=== PATIENT | female | born 1950 | race Two or more races ===

== ENCOUNTER 2020-10-13 09:58 | Emergency (ER) | payer OTHER ==
[~2020-10-13] VITALS: Ht 160 cm; Wt 66.7 kg
[2020-10-13] MEDS ORDERED: KETO10TA2 PO (11:48)
[2020-10-13] MEDS ORDERED: MUPIROCIN22 GM TOP (11:48)
[2020-10-13] MEDS ORDERED: ZYRTEC10 M3 PO (11:48)
[2020-10-13] MEDS ORDERED: ACYCLOVIR800 MG PO (11:48)
== END 2020-10-13 13:01 | disposition home or self-care (01) ==
LOC: ER 09:58
DX: B02.9 Zoster without complications (principal)

== ENCOUNTER 2021-01-07 06:00 | Day surgery (SDC) | payer OTHER ==
[~2021-01-07 06:00] MED LIST: ACYCLOVIR800 MG PO; KETO10TA2 PO; MUPIROCIN22 GM TOP; ZYRTEC10 M3 PO
== END 2021-01-07 17:25 | disposition home or self-care (01) ==
LOC: AMB-ENDOS 06:00
PROVIDERS: ATTEND Surgery
DX: K62.1 Rectal polyp (principal); Z12.11 Encounter for screening for malignant neoplasm of colon

== ENCOUNTER 2022-02-04 11:28 | Outpatient (CLI) | payer OTHER | END 2022-02-04 11:32 | disposition home or self-care (01) | LOC: EKG 11:28 | PROVIDERS: ATTEND Internal Medicine Cardiovascular Disease | DX: I10 Essential (primary) hypertension (principal) ==

== ENCOUNTER 2022-08-27 15:54 | Emergency (ER) | payer OTHER ==
[~2022-08-27] VITALS: Ht 157.5 cm; Wt 68.0 kg
[2022-08-27] MEDS ORDERED: AMITRIPTYLINE H25 MG PO (16:22)
[2022-08-27] MEDS ORDERED: CITALOPRAM HBR10 MG PO (16:22)
[2022-08-27] MEDS ORDERED: ALPRAZOLAM0.25 MG PO (16:22)
[2022-08-27] MEDS ORDERED: LOSARTAN POTAS100 MG PO (16:22)
== END 2022-08-27 19:32 | disposition home or self-care (01) ==
LOC: ER 15:54
DX: J45.901 Unspecified asthma with (acute) exacerbation (principal); I10 Essential (primary) hypertension; Z20.822 Contact with and (suspected) exposure to COVID-19

== ENCOUNTER → 2023-02-17 | Emergency (ER) | payer OTHER ==
[~2023-02-17] VITALS: Ht 160 cm; Wt 67.1 kg
[~2023-02-17] MED LIST changes: +ALPRAZOLAM0.25 MG PO; +AMITRIPTYLINE H25 MG PO; +CITALOPRAM HBR10 MG PO; +LOSARTAN POTAS100 MG PO
== END | disposition left against medical advice (07) ==
LOC: ER 08:52
DX: T18.0XXA Foreign body in mouth, initial encounter (principal); J45.909 Unspecified asthma, uncomplicated; I10 Essential (primary) hypertension

== ENCOUNTER 2023-03-07 13:53 | Outpatient (CLI) | payer OTHER | END 2023-03-07 14:21 | disposition home or self-care (01) | LOC: MRI 13:53 | DX: G44.011 Episodic cluster headache, intractable (principal) | CPT/HCPCS: 70551 ==

== ENCOUNTER 2023-03-28 13:31 | Outpatient (CLI) | payer OTHER | END 2023-03-28 13:39 | disposition home or self-care (01) | LOC: MAMO-SONO 13:31 | PROVIDERS: ATTEND Obstetrics & Gynecology | DX: N63.0 Unspecified lump in unspecified breast (principal); N64.4 Mastodynia; N65.0 Deformity of reconstructed breast ==

== ENCOUNTER 2023-09-05 14:13 | Outpatient (CLI) | payer OTHER | END 2023-09-05 14:26 | disposition home or self-care (01) | LOC: SONOGRAMA 14:13 | PROVIDERS: ATTEND Obstetrics & Gynecology | DX: R10.2 Pelvic and perineal pain (principal); R10.30 Lower abdominal pain, unspecified ==

== ENCOUNTER 2023-10-20 15:07 | Outpatient (CLI) | payer OTHER | END 2023-10-20 15:13 | disposition home or self-care (01) | LOC: SONOGRAMA 15:07 | PROVIDERS: ATTEND Internal Medicine | DX: E04.1 Nontoxic single thyroid nodule (principal) ==

== ENCOUNTER 2024-01-16 10:26 | Outpatient (CLI) | payer OTHER | END 2024-01-16 10:32 | disposition home or self-care (01) | LOC: SONOGRAMA 10:26 | PROVIDERS: ATTEND Internal Medicine | DX: E04.1 Nontoxic single thyroid nodule (principal) ==

== ENCOUNTER 2024-12-31 15:36 | Emergency (ER) | payer OTHER ==
[~2024-12-31] VITALS: Ht 160 cm; Wt 67.6 kg
[2024-12-31] MEDS ORDERED: KETOROLAC TROMETHAMINE 30 MG VIAL IM STA (17:35)
[2024-12-31] MEDS ORDERED: KETOROLAC TROMETHAMINE 30 MG VIAL ONE (17:45)
== END 2024-12-31 18:06 | disposition home or self-care (01) ==
LOC: ER 15:38
DX: M25.561 Pain in right knee (principal); M85.861 Other specified disorders of bone density and structure, right lower leg
CPT/HCPCS: 73560; 96372; 99283; J1885

== ENCOUNTER 2025-01-04 06:56 | Outpatient (CLI) | payer OTHER | END 2025-01-04 07:10 | disposition home or self-care (01) | LOC: MRI 06:56 | PROVIDERS: ATTEND Internal Medicine | DX: M25.561 Pain in right knee (principal) | CPT/HCPCS: 73721 ==